=== PATIENT | male | born 1970 | race Caucasian/White ===

== ENCOUNTER 2017-08-10 03:25 | Observation (INO) | payer MEDICARE, OTHER ==
[~2017-08-10] VITALS: Ht 175.3 cm; Wt 74.4 kg
[2017-08-10] MEDS ORDERED: NITROGLYCERIN 1GM/1 INCH PACKET TD ONE (03:42)
[2017-08-10 03:52] LABS: BASOPHILS % (AUTO) 0.7 % (0.0-5.0); EOSINOPHILS % (AUTO) 2.9 % (0.0-8.0); HEMATOCRIT 43.3 % (42-54); LYMPHOCYTES % (AUTO) 21.6 % (21.0-51.0); MEAN CORPUSCULAR HEMOGLOBIN 32.8 pg (27.0-33.0); MEAN CORPUSCULAR HGB CONC 35.7 g/dL (32.0-36.0); MEAN CORPUSCULAR VOLUME 91.9 fL (79-99); NEUTROPHILS % (AUTO) 69.8 % (40.0-77.0); NUCLEATED RED BLOOD CELLS 0.1 % (0.0-0.19); PLATELET COUNT (AUTO) 293 K/uL (130-400); RED BLOOD CELL COUNT(AUTO) 4.71 MIL/uL (4.50-6.20)
[2017-08-10 04:02] LABS: CREATININE 0.9 mg/dL (0.5-1.5); POTASSIUM 3.7 mmol/L (3.5-5.1)
[2017-08-10 04:03] LABS: INR 0.97 (0.85-1.15); PROTHROMBIN TIME 10.2 SEC (9.6-11.6)
[2017-08-10 04:10] LABS: B-TYPE NATRIURETIC PEPTIDE 9 pg/mL (0-100)
[2017-08-10 04:16] LABS: ALBUMIN 3.6 g/dL (3.5-5.0); BILIRUBIN,TOTAL 0.4 mg/dL (0.2-1.0); TOTAL PROTEIN, SERUM 7.2 g/dL (6.0-8.3)
[2017-08-10] MEDS ORDERED: MAG HYDROX/AL HYDROX/SIMETH ES 30 ML SUSP UDCUP ONE (04:35)
[2017-08-10] MEDS ORDERED: LIDOCAINE HCL 2% VISCOUS 15 ML UDCUP ONE (04:36)
[2017-08-10] MEDS ORDERED: LEVOFLOXACIN 750 MG/D5W 150 ML 150 ML ONE (04:36)
[2017-08-10 04:54] LABS: APPEARANCE,URINE Clear (CLEAR); BILIRUBIN,URINE Negative (NEGATIVE); COLOR,URINE Yellow (YELLOW); GLUCOSE, URINE (UA) Negative (NEGATIVE); KETONES,URINE Negative (NEGATIVE); LEUKOCYTE ESTERASE ,URINE Negative (NEGATIVE); NITRATE,URINE Negative (NEGATIVE); OCCULT BLOOD,URINE Negative (NEGATIVE); PROTEIN,URINE Negative (NEGATIVE)
[2017-08-10 05:01] LABS: AMPHET/METH SCREEN,URINE NEGATIVE (NEGATIVE); BARBITURATE SCREEN, URINE NEGATIVE (NEGATIVE); BENZODIAZEPINES SCREEN,URINE NEGATIVE (NEGATIVE); CANNABINOID SCREEN,URINE NEGATIVE (NEGATIVE); COCAINE SCREEN,URINE NEGATIVE (NEGATIVE); OPIATE SCREEN,URINE NEGATIVE (NEGATIVE); PHENCYCLIDINE SCREEN,URINE NEGATIVE (NEGATIVE)
[2017-08-10] MEDS ORDERED: HYDROXYZINE HCL 25 MG TABLET ONE (05:23)
[2017-08-10] MEDS ORDERED: SODIUM CHLORIDE 0.9% 1000ML 1,000 ML IV ONE (06:27)
[2017-08-10] MEDS ORDERED: ACETAMINOPHEN 325 MG TAB ONE (06:38)
[2017-08-10] MEDS: NITROGLYCERIN 1GM/1 INCH PACKET TD SCH ×3 (07:00→23:53)
[2017-08-10 07:58] VITALS: BP 107/64
[2017-08-10] MEDS: METOPROLOL TARTRATE 25 MG TAB PO SCH ×2 (08:18→21:11)
[2017-08-10] MEDS: ASPIRIN 325 MG TABLET PO SCH (09:37)
[2017-08-10] MEDS: FAMOTIDINE 20MG TAB 20 MG TAB PO SCH ×2 (09:37→21:11)
[2017-08-10 10:37] LABS: CREATINE KINASE MB 0.9 ng/mL (0.5-3.6); CREATINE KINASE, TOTAL 60 U/L (21-232); MYOGLOBIN 20 ng/mL (10-92); TROPONIN I < 0.04 ng/mL (0.00-0.06)
[2017-08-10 11:00] VITALS: BP 99/50
[2017-08-10] MEDS ORDERED: REGADENOSON 0.4 MG/5 ML PF SYG IVP SCH (13:00)
[2017-08-10 16:00] VITALS: BP 108/58
[2017-08-10] MEDS ORDERED: IBUP-2070 PO (16:12)
[2017-08-10] MEDS ORDERED: ROSU40TA20 PO (16:12)
[2017-08-10] MEDS ORDERED: DULO30CA51 PO (16:12)
[2017-08-10] MEDS ORDERED: OMEP40CA37 PO (16:12)
[2017-08-10] MEDS ORDERED: ASPI1TAB PO (16:12)
[2017-08-10] MEDS ORDERED: AEC81 PO (16:12)
[2017-08-10] MEDS ORDERED: CLOP75TA32 PO (16:12)
[2017-08-10] MEDS ORDERED: KRIL500C PO (16:12)
[2017-08-10] MEDS ORDERED: GABA-531 PO (16:12)
[2017-08-10] MEDS ORDERED: METO-408 PO (16:12)
[2017-08-10 17:15] VITALS: BP 116/74
[2017-08-10 19:46] VITALS: BP 122/72
[2017-08-10 23:26] VITALS: BP 124/78
[2017-08-11 04:05] VITALS: BP 111/69
[2017-08-11] MEDS: NITROGLYCERIN 1GM/1 INCH PACKET TD SCH (05:55)
[2017-08-11 07:00] VITALS: BP 125/77
[2017-08-11] MEDS ORDERED: PANTOPRAZOLE SODIUM 40 MG TABLET.DR PO SCH (09:00)
[2017-08-11] MEDS ORDERED: FORMULA PO SCH (09:00)
[2017-08-11] MEDS ORDERED: GABAPENTIN 300 MG CAPSULE PO SCH (09:00)
[2017-08-11] MEDS ORDERED: CLOPIDOGREL BISULFATE 75 MG TAB PO SCH (09:00)
[2017-08-11] MEDS ORDERED: KRILL OIL 500 MG PO SCH (09:00)
[2017-08-11] MEDS ORDERED: DULOXETINE HCL 30 MG CAP PO SCH (09:00)
[2017-08-11] MEDS: METOPROLOL TARTRATE 25 MG TAB PO SCH (09:00)
[2017-08-11] MEDS: ASPIRIN 325 MG TABLET PO SCH (09:00)
[2017-08-11 11:00] VITALS: BP 127/79
[2017-08-11 16:00] VITALS: BP 133/83
[2017-08-11] MEDS ORDERED: ATORVASTATIN CALCIUM 40 MG TABLET PO SCH (21:00)
== END 2017-08-11 18:00 | disposition home or self-care (01) ==
LOC: EDH 03:25 → 2DH 06:47
PROVIDERS: ADMIT Internal Medicine; ATTEND Internal Medicine
DX: I25.10 Atherosclerotic heart disease of native coronary artery without angina pectoris (principal); E78.5 Hyperlipidemia, unspecified; F17.210 Nicotine dependence, cigarettes, uncomplicated; K21.9 Gastro-esophageal reflux disease without esophagitis; Z95.5 Presence of coronary angioplasty implant and graft; Z82.49 Family history of ischemic heart disease and other diseases of the circulatory system
CPT/HCPCS: 36415; 71045; 78452; 80053; 80305; 81003; 82550 ×2; 82553 ×2; 83605; 83874 ×2; 83880; 84484 ×2; 85025; 85610; 85730; 87040 ×2; 93005; 93017; 93306; 99285; A9500 ×2; G0378 ×35; J1956; J2785; J7030; 96374

== ENCOUNTER → 2018-04-19 | Outpatient (CLI) | payer OTHER ==
[~2018-04-19] MED LIST: AEC81 PO; ASPI1TAB PO; CLOP75TA32 PO; DULO30CA51 PO; GABA-531 PO; IBUP-2070 PO; KRIL500C PO; METO-408 PO; NITR0.4T50 SL; PANT40TA PO; ROSU40TA20 PO; TURM500C9 PO
== END | disposition home or self-care (01) ==
LOC: SHCH 10:00
PROVIDERS: ATTEND Internal Medicine Cardiovascular Disease
DX: I65.23 Occlusion and stenosis of bilateral carotid arteries (principal)
CPT/HCPCS: 93880

== ENCOUNTER 2018-10-04 05:45 | Day surgery (SDC) | payer OTHER ==
[~2018-10-04] VITALS: Ht 175.3 cm; Wt 72.6 kg
[~2018-10-04 05:45] MED LIST changes: -DULO30CA51 PO; +DULO30CA52 PO; -ROSU40TA20 PO; +ROSU40TA21 PO
[2018-10-04 06:14] VITALS: BP 109/70
[2018-10-04] MEDS ORDERED: DEXL60CA3 PO (06:34)
[2018-10-04] MEDS ORDERED: ATOR-2 PO (06:34)
[2018-10-04] MEDS ORDERED: PROPOFOL 10 MG/ML 20ML VIAL IV ONE (06:39)
== END 2018-10-04 07:30 | disposition home or self-care (01) ==
LOC: DAH 05:45 → EDSTATUS 05:50 → DAH 07:30
PROVIDERS: ATTEND Internal Medicine Gastroenterology
DX: K29.50 Unspecified chronic gastritis without bleeding (principal); K44.9 Diaphragmatic hernia without obstruction or gangrene; K21.9 Gastro-esophageal reflux disease without esophagitis; F32.9 Major depressive disorder, single episode, unspecified; E78.5 Hyperlipidemia, unspecified; I25.2 Old myocardial infarction; I10 Essential (primary) hypertension; G43.711 Chronic migraine without aura, intractable, with status migrainosus; I25.10 Atherosclerotic heart disease of native coronary artery without angina pectoris; Z88.0 Allergy status to penicillin; Z88.1 Allergy status to other antibiotic agents; Z88.8 Allergy status to other drugs, medicaments and biological substances; Z79.82 Long term (current) use of aspirin; Z79.899 Other long term (current) drug therapy; Z72.89 Other problems related to lifestyle; Z83.3 Family history of diabetes mellitus; Z82.49 Family history of ischemic heart disease and other diseases of the circulatory system
CPT/HCPCS: 43239; 82948; 88305; 93005; J2704

== ENCOUNTER → 2020-02-24 | Outpatient (CLI) | payer OTHER ==
[~2020-02-24] MED LIST changes: +ATOR-2 PO; +DEXL60CA3 PO; -PANT40TA PO; -TURM500C9 PO
== END | disposition home or self-care (01) ==
LOC: SHCH 08:31
PROVIDERS: ATTEND Internal Medicine Cardiovascular Disease
DX: I65.23 Occlusion and stenosis of bilateral carotid arteries (principal)
CPT/HCPCS: 93880